=== PATIENT | female | born 1950 | race Caucasian/White ===

== ENCOUNTER → 2025-08-11 13:03 | Outpatient (REF) | payer MEDICARE, SELFPAY | LOC: MRI 3T 13:03 | PROVIDERS: ATTENDING PHYSICIAN Nurse Practitioner Adult Health; FAMILY PHYSICIAN Internal Medicine | DX: M21.372 Foot drop, left foot (principal) | CPT/HCPCS: 72148 ==

== ENCOUNTER → 2025-08-21 08:11 | Outpatient (REF) | payer MEDICARE, SELFPAY ==
[2025-08-21 09:49] LABS: Hematocrit 40.0 % (37.0-47.0); Hemoglobin 13.2 g/dL (12.0-16.0); Mean Corp Hgb Conc. 33.0 g/dL (33.0-37.0); Mean Corpuscular Volume 98.0 fL (81.0-99.0); Nucleated Red Blood Cells % 0 %; Platelet Count 185 10^3/uL (130-400); Red Cell Dist. Width 13.3 % (11.5-14.5)
[2025-08-21 09:58] LABS: INR 0.90; PT 12.6 Sec (11.4-14.6)
[2025-08-21 09:59] LABS: APTT 26.8 Sec (23.4-35.0)
[2025-08-21 10:11] LABS: ALT (SGPT) 12 U/L (0-35); AST (SGOT) 18 U/L (14-36); Albumin 3.6 g/dl (3.5-5.0); Alkaline Phosphatase 58 U/L (38-126); Blood Urea Nitrogen 34 mg/dl (7-17); Calcium 10.1 mg/dl (8.4-10.2); Carbon Dioxide 28 mmol/L (22-30); Chloride 107 mmol/L (98-107); Glucose 103 mg/dl (70-99); Potassium 3.9 mmol/L (3.5-5.1); Sodium 138 mmol/L (135-145); Total Protein 5.9 g/dl (6.3-8.2); eGFR 46.62
== END ==
LOC: RAD 08:11
PROVIDERS: ATTENDING PHYSICIAN Nurse Practitioner Adult Health; FAMILY PHYSICIAN Internal Medicine
DX: M21.372 Foot drop, left foot (principal); Z01.818 Encounter for other preprocedural examination; Z79.899 Other long term (current) drug therapy; M79.605 Pain in left leg
CPT/HCPCS: 36415; 76882; 80053; 85025; 85610; 85730; 93005